=== PATIENT | female | born 1940 | race Caucasian/White ===

== ENCOUNTER → 2017-02-15 | Outpatient (CLI) | payer MEDICARE, BC ==
[~2017-02-15] MED LIST: ATOR10TA23; DARVOCET; METO-448; [UNRECOGNIZED DRUG - CODE]
--- NOTE | 2017-02-15 17:13 | RADRPT ---
PROCEDURE: XR Knees. CLINICAL INDICATION: Bilateral knee pain. TECHNIQUE: Total of six views. Frontal, oblique, and lateral views of both knees. COMPARISON: 05/04/2016. FINDINGS: There is no fracture or dislocation. There are bilateral joint effusions. There are degenerative changes with osteophytes arising from all 3 joint compartment margins bilater ally. There is bilateral lateral joint compartment narrowing, subarticular sclerosis, and deformity with left worse than right. There is associated valgus deformity. There is no lytic or blastic lesion. There is no radiopaque foreign body. IMPRESSION: 1. Severe degenerative changes of both knees with left worse than right. 2. Associated bilateral valgus deformity. 3. Bilateral joint effusions. RPTAT: QQ .Miguel Ángel Coyne MD, MD Date Time Electronically viewed and signed by .Miguel Ángel Coyne MD, MD on 02/15/2017 17:13 .R/
--- NOTE | 2017-02-16 06:06 | HKNOTE ---
DATE OF SERVICE: 02/15/2017 CHIEF COMPLAINT: Pain in both knees. HISTORY OF PRESENT ILLNESS: The patient is a 76-year-old female who complains of pain in both her knees, her lower back, and her legs. She has had all of these symptoms for 2-3 years. She is only seeing me here today for her knees. The patient has seen me on multiple previous occasions about her knees. I have been nursing her along with cortisone injections. At her last visit, she declined monitors because it was too expensive. She and I have spoken multiple times about knee replacement surgery, but she constantly declines. The last cortisone injection given to her knee did not last very long. The patient does a great deal of travel. Her biggest problem is squeezing into the narrow space between airline seats. One time she fell on the airplane as she was trying to get to the bathroom. She takes [id number] anti-inflammatory and pain medications. She states, "I know I need knee surgery, but I'm deathly afraid." Note that she had bilateral hip replacements performed by me about 10 years ago and she is very pleased with the results of the surgery. PRESENT COMPLAINT: The pain in her knees is aggravated by walking and weightbearing. She does get night pain and rest pain. Her ankles swell up on occasion. She states she does not know what it is due to, but maybe its "gravity swelling." The patient limps all the time. She does not have a shoe lift. She can tie her shoe laces, "but its not easy." Once she gets started walking on a level surface, she can keep going, but eventually she will stop because of pain. The patient does not use a walking aid. She can walk about 2 blocks without stopping. She limps most of the time. She does not have a shoe lift. She can clip her toenails, but has a great deal of difficulty with shoes and socks. PAST ORTHOPEDIC HISTORY: PREVIOUS ORTHOPEDIC OPERATIONS: Right hip replacement followed by a left hip replacement in [address] Eduin Roberson. PRIOR CORTISONE INTAKE: The patient states prior cortisone intake, "perhaps 4 injections over the past few years." ALCOHOL INTAKE: Very little, if at all. BLOOD TESTS FOR ARTHRITIS: "I do have arthritis." PRIOR INJURIES TO HIPS OR KNEES: None. WORK STATUS: The patient's work involves sitting. PAST MEDICAL HISTORY: Skin cancer, both legs. PAST SURGICAL HISTORY: Left hip replacement in 2006, right hip replacement in 2009, herniated lumbar disk surgery 1999?, history of appendectomy, breast biopsy. DRUG ALLERGIES: None. FAMILY HISTORY: Noncontributory. SYSTEMS REVIEW: Age-related failing vision. Ankles swell from time to time. HABITS: The patient smoked from [age]. She has had very little alcohol intake. drinks 3 glasses of wine a week. PHYSICAL EXAMINATION: GENERAL APPEARANCE: The patient is a fit-looking and delightful 76-year-old female (perhaps looks a little older than her stated age). VITAL SIGNS: Height 5 feet 6 inches. Weight 160 pounds. Blood pressure 170/73. Temperature 98.8. NEUROLOGIC: The patient walks without a walking aid. She has an antalgic gait. IMAGING: Imaging of the left knee obtained today at the [facility]. Her alignment is normal. There is marked narrowing of the medial compartment of the patellofemoral joint. Osteoporosis throughout. Imaging of the right knee obtained today at the [facility]. Her alignment is normal. There is marked narrowing of the medial compartment of the patellofemoral joint. Osteoporosis throughout. DIAGNOSES: 1. Severe degenerative osteoarthritis of both knees. 2. Status post bilateral hip replacements performed by Dr. Eduin Roberson. MANAGEMENT: Once again I spent considerable time with this lady discussing knee replacement surgery. The patient cried while we were talking. She states,"I know I have to have the surgery, but I'm afraid." I sat with this patient again discussing knee replacement and what is involved, explaining as much as I possibly could how benign the procedure is, although there are possible complications which can seem to be very scary. I latoya diagrams for her, showed her exactly what we do. She was shown copies of implants. She was, once again, given a copy of my booklet on knee operations/knee replacement surgery. She will call if and when she considers surgery at some time in the near future. Dictated By: Eduin Roberson MD /brandi/boubacar /Document#: [id number]
== END | disposition home or self-care (01) ==
LOC: HKI 14:25
DX: M17.0 Bilateral primary osteoarthritis of knee (principal); Z96.643 Presence of artificial hip joint, bilateral
CPT/HCPCS: 73562; G0463

== ENCOUNTER → 2017-04-20 | Outpatient (CLI) | payer MEDICARE, BC ==
--- NOTE | 2017-04-23 14:19 | HKNOTE ---
DATE OF SERVICE: 04/20/2017 CHIEF COMPLAINT: Bilateral knee pain. HISTORY OF PRESENT ILLNESS: Devorah is a 76-year-old lady who is here for evaluation of bilateral kne e pain. The pain is chronic and has been ongoing for a number of years. The pain increases with we ightbearing activities and is partially relieved by rest. She has been taking anti-inflammatory med ications and has tried injections in her knees, with some relief. Lately, the patient has experienc ed increased pain in her left knee that has reached a point where she is considering surgical treatm ent. There is no history of trauma, fever, or chills. She has been advised in the past that she ne eds a knee replacement. She has had hip replacements previously. PHYSICAL EXAMINATION GENERAL: Shows a pleasant female. She is awake, alert, and oriented. RESPIRATORY: Breathing comfortably. HEART: Has a regular rate and rhythm. EXTREMITIES: Examination of both knees shows varus deformities with medial joint line tenderness an d a limited range of motion from 10 to 105 degrees with crepitus. There is neurovascular deficit an d no instability of the knees. PAST HISTORY: Significant for bilateral hip replacement about 10 years ago. She also has a history of back pain and previous back surgery. MEDICATIONS: She takes cholesterol medication. REVIEW OF SYSTEMS: Negative for chest pain, shortness of breath, nausea and vomiting, or diarrhea. DIAGNOSTIC STUDIES: X-rays of both knees were reviewed and show advanced osteoarthritis, with compl ete loss of joint space and osteophyte formation. ASSESSMENT AND PLAN: A 76-year-old female with bilateral knee osteoarthritis. The pain has reached a point where she is interested in proceeding with a total knee replacement. She wants to do the l eft side first. The risks and benefits of surgical treatment were discussed. Implant materials and surgical techniques were discussed as well. The patient would like to proceed with left total knee replacement in the near future. Dictated By: FOZIA KOHLER/ALDO Conf#: [id number] DID#: [id number]
== END | disposition home or self-care (01) ==
LOC: HKI 14:32
PROVIDERS: ATTEND Orthopaedic Surgery
DX: M17.0 Bilateral primary osteoarthritis of knee (principal); E78.00 Pure hypercholesterolemia, unspecified; Z96.643 Presence of artificial hip joint, bilateral
CPT/HCPCS: G0463

== ENCOUNTER → 2017-04-27 | Outpatient (CLI) | payer MEDICARE, BC ==
--- NOTE | 2017-04-27 14:12 | PN ---
Date/Time of Note Date/Time of Note DATE: 04/27/17 TIME: 14:09 Outpatient Progress Note Chief Complaint First Orthovisc injection to the right knee HPI 76-year-old female presents today for first Orthovisc injection to the right knee. Has long history of bilateral knee osteoarthritis. Was seen last week with Dr. Stewart and is scheduled for left total knee arthroplasty. Patient has ongoing constant pain to the right knee as well and it was suggested that Orthovisc injection may provide relief and improve functionality while patient undergoes left total knee arthroplasty. She denies any falls or injury since she was last seen. Review of Systems Const: No Fever, no chills, no Fatigue, normal appetite, no diaphoresis. Resp: No SOB, no wheezing, no chest pain. CV: No chest pain, no palpitaions, no CARRERA. Physical Exam Blood pressure is 145/74, temperature is 97.9, pulse is 82, respiratory rate is 14, height is 5 foot 6 inches, weight is 160 pounds General Appearance: well-developed, well-nourished, in no acute distress. Right knee: No tenderness to palpation on examination today. Gait is normal but antalgic secondary to ongoing osteoarthritis. Patient is able to fully extend the knee and flex up to 120. Noted patellofemoral crepitus on range of motion testing. 5/5 strength on resistance. Normal sensory examination to light touch. Allergies Coded Allergies: No Known Drug Allergy (Verified Allergy, Unknown, 09/02/10) Assessment/Plan Problems: (1) Bilateral primary osteoarthritis of knee * Patient has provided consent to proceed with right knee Orthovisc injection, injection #1 of 3. Area was cleaned with Betadine swab. Using 25-gauge needle , 4 cc of 1% lidocaine injected to the knee for local anesthesia as well as using cold spray. Once local anesthesia was achieved, 22-gauge needle used to inject Orthovisc injection. No complications observed. Patient was observed for 3-5 minutes after injection prior to discharge. Patient tolerated procedure well. * Follow-up one week for 2/3 injection of Orthovisc. * Patient is also scheduled for left total knee arthroplasty in May 2017. Medications Home Meds Reported Medications Metoprolol Tartrate* (Lopressor*) 25 Mg Tab 09/02/10 Propoxyphene-N/Acetaminophen (Darvocet N-100) 1 Tab Tab 12/22/09 Est Conj/Est Conj-Medroxypr Ac (Prempro (0.3/1.5)) 28 Tab Tab 12/22/09 Atorvastatin (Lipitor) 10 Mg Tablet 12/22/09 JAMIE VANEGAS PA-C Apr 27, 2017 14:12
== END | disposition home or self-care (01) ==
LOC: HKI 13:46
PROVIDERS: ATTEND Orthopaedic Surgery
DX: M17.0 Bilateral primary osteoarthritis of knee (principal)

== ENCOUNTER → 2017-05-04 | Outpatient (CLI) | payer MEDICARE, BC ==
--- NOTE | 2017-05-04 14:37 | PN ---
Date/Time of Note Date/Time of Note DATE: 05/04/17 TIME: 14:35 Outpatient Progress Note Chief Complaint Right knee Orthovisc injection 2/ HPI 76-year-old female presents today for second Orthovisc injection to the right knee. Patient has had some relief in regards to knee pain. Denies any falls or injury since she was last seen. Patient is tentatively scheduled for left total knee arthroplasty in May 2017. Review of Systems Const: No Fever, no chills, no Fatigue, normal appetite, no diaphoresis. Resp: No SOB, no wheezing, no chest pain. CV: No chest pain, no palpitaions, no CARRERA. Physical Exam Blood pressure is 145/74, temperature is 97.9, pulse is 82, respiratory rate is 14, height is 5 foot 6 inches, weight is 160 pounds General Appearance: well-developed, well-nourished, in no acute distress. Right knee: No significant changes in physical examination since last week's examination. Allergies Coded Allergies: No Known Drug Allergy (Verified Allergy, Unknown, 09/02/10) Assessment/Plan Problems: (1) Bilateral primary osteoarthritis of knee * Patient has provided consent to proceed with right knee Orthovisc injection, injection #1 of 3. Area was cleaned with Betadine swab. Using 25-gauge needle , 4 cc of 1% lidocaine injected to the knee for local anesthesia as well as using cold spray. Once local anesthesia was achieved, 22-gauge needle used to inject Orthovisc injection. No complications observed. Patient was observed for 3-5 minutes after injection prior to discharge. Patient tolerated procedure well. * Follow-up one week for 3/3 injection of Orthovisc. Medications Home Meds Reported Medications Metoprolol Tartrate* (Lopressor*) 25 Mg Tab 09/02/10 Propoxyphene-N/Acetaminophen (Darvocet N-100) 1 Tab Tab 12/22/09 Est Conj/Est Conj-Medroxypr Ac (Prempro (0.3/1.5)) 28 Tab Tab 12/22/09 Atorvastatin (Lipitor) 10 Mg Tablet 12/22/09 JAMIE VANEGAS PA-C May 04, 2017 14:37
== END | disposition home or self-care (01) ==
LOC: HKI 14:07
PROVIDERS: ATTEND Orthopaedic Surgery
DX: M17.0 Bilateral primary osteoarthritis of knee (principal)

== ENCOUNTER → 2017-05-11 | Outpatient (CLI) | payer MEDICARE, BC ==
--- NOTE | 2017-05-11 14:12 | PN ---
Date/Time of Note Date/Time of Note DATE: 05/11/17 TIME: 14:09 Outpatient Progress Note Chief Complaint Third Orthovisc injection to the right knee HPI 76-year-old female presents today for third Orthovisc injection to the right knee. Patient states that her symptoms have improved with previous to Orthovisc injections. No complaints today. Review of Systems Const: No Fever, no chills, no Fatigue, normal appetite, no diaphoresis. Resp: No SOB, no wheezing, no chest pain. CV: No chest pain, no palpitaions, no CARRERA. Physical Exam Blood pressure is 145/74, temperature is 97.9, pulse is 82, respiratory rate is 14, height is 5 foot 6 inches, weight is 160 pounds General Appearance: well-developed, well-nourished, in no acute distress. Right knee: No changes in physical examination from previous exam. Allergies Coded Allergies: No Known Drug Allergy (Verified Allergy, Unknown, 09/02/10) Assessment/Plan Problems: (1) Bilateral primary osteoarthritis of knee * 4 cc of 1% lidocaine was injected into the knee using 25-gauge needle for local anesthesia. Prior to injection, area was cleaned with Betadine swab. After local anesthesia was achieved, Orthovisc injection was performed. No complications with injection. Patient was observed for 3-5 minutes after injection and then discharged. * Follow-up as needed in regards to right knee. Patient continues with ongoing preoperative preparation for upcoming left total knee arthroplasty in May 2017. Dr. Guido was present for examination and agrees with plan. Medications Home Meds Reported Medications Metoprolol Tartrate* (Lopressor*) 25 Mg Tab 09/02/10 Propoxyphene-N/Acetaminophen (Darvocet N-100) 1 Tab Tab 12/22/09 Est Conj/Est Conj-Medroxypr Ac (Prempro (0.3/1.5)) 28 Tab Tab 12/22/09 Atorvastatin (Lipitor) 10 Mg Tablet 12/22/09 JAMIE VANEGAS PA-C May 11, 2017 14:12
== END | disposition home or self-care (01) ==
LOC: HKI 14:09
PROVIDERS: ATTEND Orthopaedic Surgery
DX: M17.0 Bilateral primary osteoarthritis of knee (principal)
CPT/HCPCS: 20610; J7324

== ENCOUNTER → 2017-06-01 | Outpatient (CLI) | payer MEDICARE, BC ==
[~2017-06-01] MED LIST changes: +ATOR10TA65 PO
--- NOTE | 2017-06-23 06:32 | HKNOTE ---
DATE OF SERVICE: 06/01/2017 Preoperative visit for left total knee replacement. HISTORY OF PRESENT ILLNESS: Devorah is a 76-year-old female who is here for a preoperative visit rela parveen to osteoarthritis of her left knee. She is scheduled for left total knee replacement on 017. The patient has failed conservative treatment with medications, injections, physical therapy. The risks and benefits of total knee replacement were discussed with the patient including but not limited to bleeding, infection, scarring, stiffness, injury to nerves and vessels, chronic pain, fra cture, dislocation, implant failure and need for further surgery. The patient understands and wishe s to proceed. Dictated By: FOZIA KOHLER/ALDO Conf#: [id number] DID#: [id number]
== END | disposition home or self-care (01) ==
LOC: HKI 14:56
PROVIDERS: ATTEND Orthopaedic Surgery
DX: Z01.818 Encounter for other preprocedural examination (principal)
CPT/HCPCS: G0463

== ENCOUNTER 2017-06-06 06:36 | Inpatient (IN) | payer MEDICARE, BC ==
[~2017-06-06] VITALS: Ht 162.6 cm; Wt 71.0 kg
[2017-06-06] VITALS (24 sets, daily range): BP systolic 95–149; BP diastolic 51–76; PULSE 63–96; RESP 11–39; Ht 162.6 cm; Wt 71.0 kg
[~2017-06-06 06:36] MED LIST changes: +ACETAMINOPHEN 1000MG/100ML IV 100 ML IVPB ONE; -ATOR10TA65 PO; +CEFAZOLIN 2 GM/50 ML (PMX) 50 ML IVPB ONE; +CELECOXIB 200 MG CAP PO ONE; +DEXAMETHASONE 4 MG/ML 1 ML INJ IV ONE; +LACTATED RINGER'S 1,000 ML IV* SCH; +LANSOPRAZOLE 30 MG CAP PO ONE; +ONDANSETRON 4 MG INJ IV ONE
[2017-06-06] MEDS ORDERED: CEFAZOLIN 1 GM INJ ONE ×2 (07:00)
[2017-06-06] MEDS ORDERED: ATOR10TA65 PO (07:08)
--- NOTE | 2017-06-06 07:18 | HPN ---
Date/Time of Note Date/Time of Note DATE: 06/06/17 TIME: 07:18 Interval H&P Admission Note Pt. seen H&P reviewed: No system changes JAMIE VANEGAS PA-C Jun 06, 2017 07:18
[2017-06-06] MEDS ORDERED: FENTAnyl 50 MCG/ML VIAL ONE (10:25)
[2017-06-06] MEDS ORDERED: ROPIVACAINE 0.5 % 30 ML VIAL ONE (10:25)
[2017-06-06] MEDS ORDERED: DEXAMETHASONE 4 MG/ML 1 ML INJ ONE (10:25)
[2017-06-06] MEDS ORDERED: PROPOFOL 20 ML ONE (10:25)
[2017-06-06] MEDS ORDERED: METOCLOPRAMIDE 10 MG INJ ONE (10:25)
[2017-06-06] MEDS ORDERED: MIDAZOLAM 1 MG/ML 2 ML INJ ONE (10:25)
[2017-06-06] MEDS ORDERED: ROPIVACAINE 0.2% 60 ML, CLONIDINE 100 MCG, EPINEPHrine 0.3 MG, KETOROLAC 30 MG, SOD CHL... INJ SCH ×5 (10:30)
[2017-06-06] MEDS ORDERED: SOD CHLORIDE 0.9% IV ONE ×4 (10:30)
[2017-06-06] MEDS ORDERED: TRANEXAMIC ACID IV ONE ×4 (10:30)
[2017-06-06] MEDS ORDERED: POLYMYXIN B 500000 UNIT INJ ONE (10:36)
[2017-06-06] MEDS ORDERED: BACITRACIN 50000 UNITS INJ INJ ONE (10:44)
[2017-06-06] MEDS ORDERED: DIPHENHYDRAMINE 50 MG INJ IV PRN (11:30)
[2017-06-06] MEDS ORDERED: MEPERIDINE 25 MG INJ IV PRN (11:30)
[2017-06-06] MEDS ORDERED: ONDANSETRON 4 MG INJ IV PRN (11:30)
[2017-06-06] MEDS ORDERED: HYDROmorphONE (0.2 MG/ML) 10ML SYG IV PRN ×3 (11:30)
[2017-06-06] MEDS ORDERED: BACITRACIN 50000 UNITS INJ ONE (12:44)
--- NOTE | 2017-06-06 12:47 | SIPON ---
Date/Time of Note Date/Time of Note DATE: 06/06/17 TIME: 12:46 Operative Report Preoperative Diagnosis left knee DJD Postoperative Diagnosis same Operation/Procedure Performed left TKA Surgeon see signature line school psychologist assistant david Second assist: DAVID VANEGAS PA-C Anesthesia: spinal Estimated blood loss: 150 - 200 ml's Transfusion Required none Specimen bone Grafts/Implants DePuy 5 femur, 4 tibia, 6 poly, 35 patella Complications none FOZIA CAMERON Jun 06, 2017 12:47
--- NOTE | 2017-06-06 12:52 | RADRPT ---
PROCEDURE: Left knee study CLINICAL INDICATION: Left knee prosthesis placed TECHNIQUE: AP view of the left knee was obtained COMPARISON: Bilateral knee study 02/15/2017 FINDINGS: There is external artifact precluding optimal evaluation. There is a left knee prosthesis in place w ithout evidence of dislocation or loosening. There is no focal bony blastic or lytic lesions. Mild s oft tissue air consistent with postoperative change. IMPRESSION: 1. Suboptimal study due to external artifact. 2. Left knee prosthesis in place without evidence of dislocation or loosening. 3. Postoperative changes. RPTAT:AAJJ Physician Aleena Date Time Electronically viewed and signed by Physician Aleena on 06/06/2017 12:51 BM/
--- NOTE | 2017-06-06 13:11 | PDOCDIS ---
Discharge Instructions DIAGNOSIS Discharge Diagnosis Status post left total knee arthroplasty CONDITION Patient Condition: Good HOME CARE INSTRUCTIONS: Diet Instructions: Regular ACTIVITY: Activity Restrictions: Slowly Increase Activity Rest between Activity Avoid heavy lifting No Sexual Activity Do not Drive Do not operate Machinery Do not operate Power Tool Avoid Heavy Housework Keep Limb Elevated (May apply 2-3 pillows under the foot/ankle while at rest. Cold therapy over surgical dressing is okay.) Weight Bearing (Weight-bear as tolerated with front wheeled walker.) FOLLOW UP/APPOINTMENTS Follow-up Plan Follow-up at postoperative appointment provided to you at your preoperative visit. JAMIE VANEGAS PA-C Jun 06, 2017 13:11
[2017-06-06] MEDS ORDERED: DIPHENHYDRAMINE 50 MG INJ IM PRN (13:30)
[2017-06-06] MEDS ORDERED: DOCUSATE SODIUM 100 MG CAP PO ONE (13:30)
[2017-06-06] MEDS ORDERED: BISACODYL 10 MG SUPP PR PRN (13:30)
[2017-06-06] MEDS ORDERED: SENNA/DOCUSATE NA (8.6MG/50MG) TAB PO PRN (13:30)
[2017-06-06] MEDS ORDERED: BETHANECHOL 25 MG TAB PO PRN (13:30)
[2017-06-06] MEDS ORDERED: MAGNESIUM HYDROXIDE 30ML CUP PO PRN (13:30)
[2017-06-06] MEDS ORDERED: ASPIRIN (EC) 325 MG TAB PO ONE (13:30)
[2017-06-06] MEDS ORDERED: KETOROLAC 15 MG INJ IV PRN (13:30)
[2017-06-06] MEDS ORDERED: NA PHOSPHATE/BIPHOS 133 ML ENEMA PR PRN (13:30)
[2017-06-06] MEDS ORDERED: oxyCODONE 5 MG TAB PO PRN ×2 (13:30)
[2017-06-06] MEDS ORDERED: NALOXONE (0.4 MG/ML) INJ IV PRN (13:30)
[2017-06-06] MEDS ORDERED: ZOLPIDEM 5 MG TAB PO PRN (13:30)
[2017-06-06] MEDS: CEFAZOLIN 1 GM/50 ML (PMX) 50 ML IVPB SCH ×2 (13:39→21:00)
[2017-06-06] MEDS: ONDANSETRON 4 MG INJ IV SCH ×2 (13:41→19:30)
--- NOTE | 2017-06-06 14:15 | PN ---
Date/Time of Note Date/Time of Note DATE: 06/06/17 TIME: 14:10 Assessment/Plan VTE Prophylaxis VTE Prophylaxis Intervention: SCD's Lines/Catheters IV Catheter Type (from Nrsg): Saline Lock Subjective 24 Hr Interval Summary Free Text/Dictation 76 yr old woman pt of jennifer stanford see preop h and p, hx , dyslipidemia and arthritis. prior hip replacements bilat, appy and laminectomy. now post left tkr, with hx progressive dysconfort and limping allergies none meds lipitor 5mg sleepy but alert and fluent vs ok lungs clear, hr regular, left knee wrapped, moves all four Exam/Review of Systems Vital Signs Vitals Vital Signs Date Time Temp Pulse Resp B/P Pulse Ox O2 Delivery O2 Flow Rate FiO2 06/06/17 08:24 98.3 85 19 149/76 100 Room Air Medications Medications Current Medications Sodium Chloride (NS) 1,000 ml @ 80 mls/hr [id number] IV ; Start 06/06/17 at 13:12 Oxycodone HCl (Roxicodone) 20 mg Q3H PRN PO PAIN LEVEL 8-10; Start 06/06/17 at 13:30 Oxycodone HCl (Roxicodone) 10 mg Q3H PRN PO PAIN LEVEL 4-7; Start 06/06/17 at 13:30 Oxycodone HCl (Roxicodone) 5 mg Q3H PRN PO PAIN LEVEL 1-3; Start 06/06/17 at 13:30 Zolpidem Tartrate (Ambien) 5 mg HS PRN PO INSOMNIA; Start 06/06/17 at 13:30 Ondansetron HCl 4 mg 4 mg Q6H IV Last administered on 06/06/17t 13:41; Admin Dose 4 MG; Start 06/06/17 at 13:30; Stop 06/07/17 at 07:31 Cefazolin Sodium (Ancef 1 Gm/50 ml (Pmx)) 50 ml @ 100 mls/hr Q8H IVPB Last administered on 06/06/17t 13:39; Admin Dose 100 MLS/HR; Start 06/06/17 at 13: 30; Stop 06/07/17 at 05:59 Aspirin (Ecotrin) 325 mg DAILY PO ; Start 06/07/17 at 09:00 Celecoxib (Celebrex) 100 mg BID PO ; Start 06/07/17 at 09:00 Pantoprazole (Protonix Tab) 40 mg DAILY@06 PO ; Start 06/08/17 at 06:00 Docusate Sodium/ Ferrous Fumarate (Arturo-Sequels) 1 tab BID PO ; Start at 09:00 Docusate Sodium (Colace) 200 mg BID PO ; Start 06/07/17 at 09:00; Stop at 08:59 Simethicone (Mylicon) 80 mg TID PRN PO DISTENSION/GAS/BLOATING; Start at 13:30 Senna/Docusate Sodium (Senokot-S) 2 tab BID PRN PO CONSTIPATION; Start at 13:30 Magnesium Hydroxide (Milk Of Mag) 30 ml HS PRN PO CONSTIPATION; Start at 13:30 Bisacodyl (Dulcolax Supp) 10 mg DAILY PRN [place] CONSTIPATION; Start 06/06/17 at 13:30 Sodium Biphosphate/ Sodium Phosphate (Fleet Enema) 133 ml DAILY PRN [place] CONSTIPATION; Start 06/06/17 at 13:30 Diphenhydramine HCl (Benadryl) 25 mg Q4H PRN IM ITCHING OR RASH; Start at 13:30 Ketorolac Tromethamine (Toradol) 15 mg Q6 PRN IV PAIN; Start 06/06/17 at 13:30 ; Stop 06/10/17 at 13:29 Naloxone HCl (Narcan) 0.2 mg Q2M PRN IV DECREASED REPIRATORY RATE; Start at 13:30 CANDI MENDOZA MD Jun 06, 2017 14:15
[2017-06-06] MEDS: SOD CHLORIDE 0.9% 1,000 ML IV SCH (15:30)
--- NOTE | 2017-06-06 16:46 | OPR ---
Date/Time of Note Date/Time of Note DATE: 06/06/17 TIME: 16:42 Operative Report Procedure Date: Jun 06, 2017 Preoperative Diagnosis Left knee osteoarthritis Postoperative Diagnosis Same Operation/Procedure Performed Total knee replacement Surgeon see signature line Weight Checker Aristeo Second Weight Checker: JAMIE VANEGAS PA-C Anesthesia Type: spinal Estimated Blood Loss: 150 - 200 ml's Transfusion none Specimen Bone Grafts/Implants Size 5 femur, size 4 tibia, 6 mm polyethylene and 35 mm patella Tubes/Drains None Complications none Pt Condition Post Procedure: stable Disposition: PACU Indications Patient is a 76-year-old female with advanced osteoarthritis of her left knee response to conservative treatment Procedure Description He was placed supine on the operating room table. The left knee was examined and found to have a valgus deformity of 12-15. And flexion deformity of 10-15 . The left knee was prepped and draped in the usual manner. Preoperative antibiotics were administered. An anterior approach to the left knee was made. A mid vastus approach was made and the patella was displaced laterally without everting it. Hemostasis was achieved with electrocautery and aqua Mantis. The femoral cut was made using intramedullary alignment. The distal femoral cut was made in 5 of valgus. The femur was measured to be a size 5 from the [place] knee system. 5 cutting block was placed in slight external rotation. Anterior posterior and chamfer cuts were made. The notch was cut in the distal femur to accommodate the posterior stabilized femoral component. The PCL was sacrificed. Remnants of the menisci were removed. The tibia was cut using external alignment. The patella was cut using a freehand technique. Trials were inserted including a 5 femur, 4 tibia, 6 mm polyethylene and 35 mm patella. The knee was carried through a range of motion and was found to be stable from 0-120 with good balance and tracking. Alignment was satisfactory. X-rays were obtained to confirm placement of the implants. Once satisfactory alignment was confirmed, the trials were removed. The left knee was thoroughly irrigated and dried. Implants were cemented in place including a 5 narrow femur , 4 tibia, 6 mm polyethylene and 35 mm patella. Excess cement was removed. The knee was irrigated and injected with Marcaine and Toradol. The knee was closed in layers using #1 Vicryl for arthrotomy and fascia, 2-0 Vicryl for subcutaneous tissue and 3-0 Monocryl for the skin. Patient was transferred to the recovery room in stable condition. FOZIA CAMERON Jun 06, 2017 16:46
[2017-06-06] MEDS: oxyCODONE 5 MG TAB PO PRN (21:01)
[2017-06-07] MEDS: ONDANSETRON 4 MG INJ IV SCH ×2 (01:30→07:30)
[2017-06-07] MEDS: SOD CHLORIDE 0.9% 1,000 ML IV SCH ×2 (01:42→14:12)
[2017-06-07] MEDS: CEFAZOLIN 1 GM/50 ML (PMX) 50 ML IVPB SCH (05:59)
[2017-06-07] MEDS: oxyCODONE 5 MG TAB PO PRN ×4 (06:00→21:08)
[2017-06-07 06:16] LABS: BASOPHILS % 0.3 % (0.0-2.0); EOSINOPHILS # 0.1 10^3/ul (0.0-0.5); EOSINOPHILS % 0.5 % (0.0-7.0); HEMATOCRIT 33.5 % (37.0-47.0); HEMOGLOBIN 10.7 g/dl (12.0-16.0); LYMPHOCYTES # 2.3 10^3/ul (0.8-2.9); LYMPHOCYTES % 19.9 % (15.0-51.0); MEAN CORPUSCULAR HEMOGLOBIN 27.3 pg (29.0-33.0); MEAN CORPUSCULAR HGB CONC 31.9 g/dl (32.0-37.0); MEAN CORPUSCULAR VOLUME 85.5 fl (82.0-101.0); MEAN PLATELET VOLUME 9.1 fl (7.4-10.4); MONOCYTE # 0.8 10^3/ul (0.3-0.9); MONOCYTES % 6.7 % (0.0-11.0); NEUTROPHIL # 8.3 10^3/ul (1.6-7.5); NEUTROPHILS % 72.3 % (39.0-77.0); PLATELET COUNT 310 10^3/UL (140-415); RED BLOOD COUNT 3.92 10^6/ul (4.20-5.40); RED CELL DISTRIBUTION WIDTH 13.9 % (11.5-14.5); WHITE BLOOD COUNT 11.4 10^3/ul (4.8-10.8)
[2017-06-07 06:38] LABS: CALCIUM 8.7 mg/dl (8.4-10.2); CREATININE 0.81 mg/dl (0.44-1.00); POTASSIUM 4.9 mmol/L (3.5-5.1)
[2017-06-07 07:50] VITALS: BP 116/64; RESP 16
[2017-06-07] MEDS: DOCUSATE SODIUM 100 MG CAP PO SCH ×2 (09:02→21:08)
[2017-06-07] MEDS: CELECOXIB 100 MG CAP PO SCH ×2 (09:02→21:08)
[2017-06-07] MEDS: FERROUS FUMARATE (SR) TAB PO SCH ×2 (09:02→21:08)
[2017-06-07] MEDS: ASPIRIN (EC) 325 MG TAB PO SCH (09:02)
--- NOTE | 2017-06-07 11:14 | PN ---
Date/Time of Note Date/Time of Note DATE: 06/07/17 TIME: 11:12 Assessment/Plan VTE Prophylaxis VTE Prophylaxis Intervention: ambulation, anti-embolic stocking, SCD's, other Lines/Catheters IV Catheter Type (from Nrs): Saline Lock Subjective 24 Hr Interval Summary Free Text/Dictation Patient is doing well status post left total knee replacement. She is ambulating with physical therapy. The dressing is intact. There is no neurovascular deficit. Motion of the left knee is 10-80. Would like to go home tomorrow. Home health care and physical therapy will be arranged. Exam/Review of Systems Vital Signs Vitals Vital Signs Date Time Temp Pulse Resp B/P Pulse Ox O2 Delivery O2 Flow Rate FiO2 06/07/17 07:50 98.3 77 16 116/64 100 06/06/17 17:15 Room Air 06/06/17 13:17 8.0 Intake and Output 06/06/17 06/06/17 06/07/17 14:59 22:59 06:59 Intake Total 1000 ml 370 ml 1450 ml Output Total 200 ml Balance 800 ml 370 ml 1450 ml Results Result Diagram: 06/07/17 0518 06/07/17 0518 Results 24 hrs Laboratory Tests Test 06/07/17 05:18 White Blood Count 11.4 H Red Blood Count 3.92 L Hemoglobin 10.7 L Hematocrit 33.5 L Mean Corpuscular Volume 85.5 Mean Corpuscular Hemoglobin 27.3 L Mean Corpuscular Hemoglobin Concent 31.9 L Red Cell Distribution Width 13.9 Platelet Count 310 Mean Platelet Volume 9.1 Neutrophils % 72.3 Lymphocytes % 19.9 Monocytes % 6.7 Eosinophils % 0.5 Basophils % 0.3 Nucleated Red Blood Cells % 0.0 Neutrophils # 8.3 H Lymphocytes # 2.3 Monocytes # 0.8 Eosinophils # 0.1 Basophils # 0.0 Nucleated Red Blood Cells # 0.0 Sodium Level 142 Potassium Level 4.9 Chloride Level 109 Carbon Dioxide Level 29 Anion Gap 9 Blood Urea Nitrogen 14 Creatinine 0.81 Glucose Level 94 Calcium Level 8.7 Medications Medications Current Medications Sodium Chloride (NS) 1,000 ml @ 80 mls/hr [id number] IV Last administered on t 15:30; Admin Dose 80 MLS/HR; Start 06/06/17 at 13:12 Oxycodone HCl (Roxicodone) 20 mg Q3H PRN PO PAIN LEVEL 8-10; Start 06/06/17 at 13:30 Oxycodone HCl (Roxicodone) 10 mg Q3H PRN PO PAIN LEVEL 4-7 Last administered on 06/07/17 09:02; Admin Dose 10 MG; Start 06/06/17 at 13:30 Oxycodone HCl (Roxicodone) 5 mg Q3H PRN PO PAIN LEVEL 1-3; Start 06/06/17 at 13:30 Zolpidem Tartrate (Ambien) 5 mg HS PRN PO INSOMNIA; Start 06/06/17 at 13:30 Aspirin (Ecotrin) 325 mg DAILY PO Last administered on 06/07/17 09:02; Admin Dose 325 MG; Start 06/07/17 at 09:00 Celecoxib (Celebrex) 100 mg BID PO Last administered on 06/07/17 09:02; Admin Dose 100 MG; Start 06/07/17 at 09:00 Pantoprazole (Protonix Tab) 40 mg DAILY@06 PO ; Start 06/08/17 at 06:00 Docusate Sodium/ Ferrous Fumarate (Arturo-Sequels) 1 tab BID PO Last administered on 06/07/17 09:02; Admin Dose 1 TAB; Start 06/07/17 at 09:00 Docusate Sodium (Colace) 200 mg BID PO Last administered on 06/07/17 09:02; Admin Dose 200 MG; Start 06/07/17 at 09:00; Stop 06/10/17 at 08:59 Simethicone (Mylicon) 80 mg TID PRN PO DISTENSION/GAS/BLOATING; Start at 13:30 Senna/Docusate Sodium (Senokot-S) 2 tab BID PRN PO CONSTIPATION; Start at 13:30 Magnesium Hydroxide (Milk Of Mag) 30 ml HS PRN PO CONSTIPATION; Start at 13:30 Bisacodyl (Dulcolax Supp) 10 mg DAILY PRN [place] CONSTIPATION; Start 06/06/17 at 13:30 Sodium Biphosphate/ Sodium Phosphate (Fleet Enema) 133 ml DAILY PRN ID CONSTIPATION; Start 06/06/17 at 13:30 Diphenhydramine HCl (Benadryl) 25 mg Q4H PRN IM ITCHING OR RASH; Start at 13:30 Ketorolac Tromethamine (Toradol) 15 mg Q6 PRN IV PAIN; Start 06/06/17 at 13:30 ; Stop 06/10/17 at 13:29 Naloxone HCl (Narcan) 0.2 mg Q2M PRN IV DECREASED REPIRATORY RATE; Start at 13:30 FOZIA CAMERON Jun 07, 2017 11:14
--- NOTE | 2017-06-07 11:35 | PN ---
Date/Time of Note Date/Time of Note DATE: 06/07/17 TIME: 11:33 Assessment/Plan VTE Prophylaxis VTE Prophylaxis Intervention: SCD's Lines/Catheters IV Catheter Type (from Nrsg): Saline Lock Subjective 24 Hr Interval Summary Free Text/Dictation first post op day tkr, has been up in room with p.t. and to br vs ok, lungs clear, hr ok seen with spouse, questions answered medical status is good prob dc tomorrow per ortho Exam/Review of Systems Vital Signs Vitals Vital Signs Date Time Temp Pulse Resp B/P Pulse Ox O2 Delivery O2 Flow Rate FiO2 06/07/17 07:50 98.3 77 16 116/64 100 06/06/17 17:15 Room Air 06/06/17 13:17 8.0 Intake and Output 06/06/17 06/06/17 06/07/17 15:00 23:00 07:00 Intake Total 1000 ml 370 ml 1450 ml Output Total 200 ml Balance 800 ml 370 ml 1450 ml Results Result Diagram: 06/07/17 0518 06/07/17 0518 Results 24 hrs Laboratory Tests Test 06/07/17 05:18 White Blood Count 11.4 H Red Blood Count 3.92 L Hemoglobin 10.7 L Hematocrit 33.5 L Mean Corpuscular Volume 85.5 Mean Corpuscular Hemoglobin 27.3 L Mean Corpuscular Hemoglobin Concent 31.9 L Red Cell Distribution Width 13.9 Platelet Count 310 Mean Platelet Volume 9.1 Neutrophils % 72.3 Lymphocytes % 19.9 Monocytes % 6.7 Eosinophils % 0.5 Basophils % 0.3 Nucleated Red Blood Cells % 0.0 Neutrophils # 8.3 H Lymphocytes # 2.3 Monocytes # 0.8 Eosinophils # 0.1 Basophils # 0.0 Nucleated Red Blood Cells # 0.0 Sodium Level 142 Potassium Level 4.9 Chloride Level 109 Carbon Dioxide Level 29 Anion Gap 9 Blood Urea Nitrogen 14 Creatinine 0.81 Glucose Level 94 Calcium Level 8.7 Medications Medications Current Medications Sodium Chloride (NS) 1,000 ml @ 80 mls/hr [id number] IV Last administered on t 15:30; Admin Dose 80 MLS/HR; Start 06/06/17 at 13:12 Oxycodone HCl (Roxicodone) 20 mg Q3H PRN PO PAIN LEVEL 8-10; Start 06/06/17 at 13:30 Oxycodone HCl (Roxicodone) 10 mg Q3H PRN PO PAIN LEVEL 4-7 Last administered on 06/07/17 09:02; Admin Dose 10 MG; Start 06/06/17 at 13:30 Oxycodone HCl (Roxicodone) 5 mg Q3H PRN PO PAIN LEVEL 1-3; Start 06/06/17 at 13:30 Zolpidem Tartrate (Ambien) 5 mg HS PRN PO INSOMNIA; Start 06/06/17 at 13:30 Aspirin (Ecotrin) 325 mg DAILY PO Last administered on 06/07/17 09:02; Admin Dose 325 MG; Start 06/07/17 at 09:00 Celecoxib (Celebrex) 100 mg BID PO Last administered on 06/07/17 09:02; Admin Dose 100 MG; Start 06/07/17 at 09:00 Pantoprazole (Protonix Tab) 40 mg DAILY@06 PO ; Start 06/08/17 at 06:00 Docusate Sodium/ Ferrous Fumarate (Arturo-Sequels) 1 tab BID PO Last administered on 06/07/17 09:02; Admin Dose 1 TAB; Start 06/07/17 at 09:00 Docusate Sodium (Colace) 200 mg BID PO Last administered on 06/07/17 09:02; Admin Dose 200 MG; Start 06/07/17 at 09:00; Stop 06/10/17 at 08:59 Simethicone (Mylicon) 80 mg TID PRN PO DISTENSION/GAS/BLOATING; Start at 13:30 Senna/Docusate Sodium (Senokot-S) 2 tab BID PRN PO CONSTIPATION; Start at 13:30 Magnesium Hydroxide (Milk Of Mag) 30 ml HS PRN PO CONSTIPATION; Start at 13:30 Bisacodyl (Dulcolax Supp) 10 mg DAILY PRN [place] CONSTIPATION; Start 06/06/17 at 13:30 Sodium Biphosphate/ Sodium Phosphate (Fleet Enema) 133 ml DAILY PRN [place] CONSTIPATION; Start 06/06/17 at 13:30 Diphenhydramine HCl (Benadryl) 25 mg Q4H PRN IM ITCHING OR RASH; Start at 13:30 Ketorolac Tromethamine (Toradol) 15 mg Q6 PRN IV PAIN; Start 06/06/17 at 13:30 ; Stop 06/10/17 at 13:29 Naloxone HCl (Narcan) 0.2 mg Q2M PRN IV DECREASED REPIRATORY RATE; Start at 13:30 CANDI MENDOZA MD Jun 07, 2017 11:35
[2017-06-07 14:48] VITALS: BP 104/55; RESP 15
[2017-06-07 19:20] VITALS: BP 115/57; RESP 18
[2017-06-08 02:00] VITALS: BP 119/57; RESP 18
[2017-06-08] MEDS: SOD CHLORIDE 0.9% 1,000 ML IV SCH ×2 (02:42→15:12)
[2017-06-08] MEDS: oxyCODONE 5 MG TAB PO PRN (05:43)
[2017-06-08 05:56] LABS: BASOPHILS % 0.4 % (0.0-2.0); EOSINOPHILS # 0.1 10^3/ul (0.0-0.5); EOSINOPHILS % 0.9 % (0.0-7.0); HEMATOCRIT 33.4 % (37.0-47.0); HEMOGLOBIN 10.6 g/dl (12.0-16.0); LYMPHOCYTES # 1.4 10^3/ul (0.8-2.9); MEAN CORPUSCULAR HGB CONC 31.7 g/dl (32.0-37.0); MEAN CORPUSCULAR VOLUME 85.2 fl (82.0-101.0); MEAN PLATELET VOLUME 9.1 fl (7.4-10.4); MONOCYTE # 0.7 10^3/ul (0.3-0.9); MONOCYTES % 8.2 % (0.0-11.0); NEUTROPHILS % 73.3 % (39.0-77.0); PLATELET COUNT 317 10^3/UL (140-415); RED BLOOD COUNT 3.92 10^6/ul (4.20-5.40); RED CELL DISTRIBUTION WIDTH 13.9 % (11.5-14.5); WHITE BLOOD COUNT 8.2 10^3/ul (4.8-10.8)
[2017-06-08] MEDS ORDERED: PANTOPRAZOLE (EC) 40 MG TAB PO SCH (06:00)
[2017-06-08 06:39] LABS: CALCIUM 8.4 mg/dl (8.4-10.2); CREATININE 0.67 mg/dl (0.44-1.00); POTASSIUM 3.8 mmol/L (3.5-5.1)
[2017-06-08 07:38] VITALS: BP 131/62; RESP 18
--- NOTE | 2017-06-08 09:14 | PN ---
Date/Time of Note Date/Time of Note DATE: 06/08/17 TIME: 09:12 Assessment/Plan VTE Prophylaxis VTE Prophylaxis Intervention: ambulation, SCD's, other (Aspirin 325 mg) Lines/Catheters IV Catheter Type (from Nrsg): Peripheral IV Assessment/Plan Assessment/Plan -Pain Meds as needed -ASA for DVT Prophylaxis x 4 weeks outpatient discussed. -Continue monitoring as outpatient on discharge -Follow-up at scheduled postop outpatient appointment or sooner if there is any issue. -Patient Stable -Discharge to Home with home health Subjective 24 Hr Interval Summary 76-year-old female postop day 2 status post left total knee arthroplasty. Denies any calf pain. Denies any chest pain or tightness. Has been up and walking with physical therapy. Denies any acute overnight events. Does continue with aches to the knee status post surgery. Pain Control: mild Exam/Review of Systems Vital Signs Vitals Vital Signs Date Time Temp Pulse Resp B/P Pulse Ox O2 Delivery O2 Flow Rate FiO2 06/08/17 07:38 98.6 78 18 131/62 95 06/06/17 17:15 Room Air 06/06/17 13:17 8.0 Intake and Output 06/07/17 06/07/17 06/08/17 15:00 23:00 07:00 Intake Total 800 ml 650 ml Output Total 500 ml 1110 ml Balance 300 ml -460 ml Exam Free Text/Dictation -No complications with dressing intact. -5/5 Tibialis Anterior, EHL Gastrocnemius/Soleus and Peroneals -Normal Sensation -Palpable DP/PT, Capillary Refill <2 secs -No Distal Edema -Negative Osmin Sign/No calf pain -Toes Freely Movable Constitutional: alert, oriented, well developed Results Result Diagram: 06/08/17 0506 06/08/17 0506 JAMIE VANEGAS PA-C Jun 08, 2017 09:14
[2017-06-08] MEDS: ASPIRIN (EC) 325 MG TAB PO SCH (09:19)
[2017-06-08] MEDS: DOCUSATE SODIUM 100 MG CAP PO SCH (09:19)
[2017-06-08] MEDS: CELECOXIB 100 MG CAP PO SCH (09:19)
[2017-06-08] MEDS: FERROUS FUMARATE (SR) TAB PO SCH (09:19)
[2017-06-08] MEDS ORDERED: ACETAMINOPHEN 325 MG TAB PO PRN (09:30)
[2017-06-08] MEDS ORDERED: ONDANSETRON 4 MG INJ IV PRN (10:00)
--- NOTE | 2017-06-08 10:26 | PN ---
Date/Time of Note Date/Time of Note DATE: 06/08/17 TIME: 10:21 Assessment/Plan VTE Prophylaxis VTE Prophylaxis Intervention: ambulation, SCD's Lines/Catheters IV Catheter Type (from Nrsg): Peripheral IV Urinary Cath still in place: No Assessment/Plan Chief Complaint/Hosp Course nausea probably 2nd to pain medications otherwise stable will rx zofran re nausea otherwise stable a this poin management per ortho Problems: Assessment/Plan scheduled for discharge today mper ortho Subjective 24 Hr Interval Summary Eyes: no complaints ENT: no complaints Respiratory: no complaints Cardiovascular: no complaints Gastrointestinal: nausea Genitourinary: no complaints Musculoskeletal: bone/joint pain Skin: no complaints Neurologic: no complaints Exam/Review of Systems Vital Signs Vitals Vital Signs Date Time Temp Pulse Resp B/P Pulse Ox O2 Delivery O2 Flow Rate FiO2 06/08/17 07:38 98.6 78 18 131/62 95 06/06/17 17:15 Room Air 06/06/17 13:17 8.0 Intake and Output 06/07/17 06/07/17 06/08/17 15:00 23:00 07:00 Intake Total 800 ml 650 ml Output Total 500 ml 1110 ml Balance 300 ml -460 ml Exam Constitutional: alert Psych: no complaints Head: normocephalic Eyes: nl conjunctiva ENMT: nl external ears & nose Neck: supple Respiratory: clear to auscultation Cardiovascular: regular rate and rhythm Gastrointestinal: soft Extremities: other (post total knee replacement left knee) Results Result Diagram: 06/08/17 0506 06/08/17 0506 Results 24 hrs Laboratory Tests Test 06/08/17 05:06 White Blood Count 8.2 # Red Blood Count 3.92 L Hemoglobin 10.6 L Hematocrit 33.4 L Mean Corpuscular Volume 85.2 Mean Corpuscular Hemoglobin 27.0 L Mean Corpuscular Hemoglobin Concent 31.7 L Red Cell Distribution Width 13.9 Platelet Count 317 Mean Platelet Volume 9.1 Neutrophils % 73.3 Lymphocytes % 17.0 Monocytes % 8.2 Eosinophils % 0.9 Basophils % 0.4 Nucleated Red Blood Cells % 0.0 Neutrophils # 6.0 Lymphocytes # 1.4 Monocytes # 0.7 Eosinophils # 0.1 Basophils # 0.0 Nucleated Red Blood Cells # 0.0 Sodium Level 140 Potassium Level 3.8 Chloride Level 105 Carbon Dioxide Level 28 Anion Gap 11 Blood Urea Nitrogen 13 Creatinine 0.67 Glucose Level 109 Calcium Level 8.4 Medications Medications Current Medications Sodium Chloride (NS) 1,000 ml @ 80 mls/hr [id number] IV Last administered on 15:30; Admin Dose 80 MLS/HR; Start 06/06/17 at 13:12 Oxycodone HCl (Roxicodone) 20 mg Q3H PRN PO PAIN LEVEL 8-10; Start 06/06/17 at 13:30 Oxycodone HCl (Roxicodone) 10 mg Q3H PRN PO PAIN LEVEL 4-7 Last administered on 06/08/17 05:43; Admin Dose 10 MG; Start 06/06/17 at 13:30 Oxycodone HCl (Roxicodone) 5 mg Q3H PRN PO PAIN LEVEL 1-3; Start 06/06/17 at 13:30 Zolpidem Tartrate (Ambien) 5 mg HS PRN PO INSOMNIA; Start 06/06/17 at 13:30 Aspirin (Ecotrin) 325 mg DAILY PO Last administered on 06/08/17 09:19; Admin Dose 325 MG; Start 06/07/17 at 09:00 Celecoxib (Celebrex) 100 mg BID PO Last administered on 06/08/17 09:19; Admin Dose 100 MG; Start 06/07/17 at 09:00 Pantoprazole (Protonix Tab) 40 mg DAILY@06 PO Last administered on 06/08/17 05:44; Admin Dose 40 MG; Start 06/08/17 at 06:00 Docusate Sodium/ Ferrous Fumarate (Arturo-Sequels) 1 tab BID PO Last administered on 06/08/17 09:19; Admin Dose 1 TAB; Start 06/07/17 at 09:00 Docusate Sodium (Colace) 200 mg BID PO Last administered on 06/08/17 09:19; Admin Dose 200 MG; Start 06/07/17 at 09:00; Stop 06/10/17 at 08:59 Simethicone (Mylicon) 80 mg TID PRN PO DISTENSION/GAS/BLOATING; Start at 13:30 Senna/Docusate Sodium (Senokot-S) 2 tab BID PRN PO CONSTIPATION; Start at 13:30 Magnesium Hydroxide (Milk Of Mag) 30 ml HS PRN PO CONSTIPATION; Start at 13:30 Bisacodyl (Dulcolax Supp) [address] CONSTIPATION; Start 06/06/17 at 13:30 Sodium Biphosphate/ Sodium Phosphate (Fleet Enema) [address] CONSTIPATION; Start 06/06/17 at 13:30 Diphenhydramine HCl (Benadryl) 25 mg Q4H PRN IM ITCHING OR RASH; Start at 13:30 Ketorolac Tromethamine (Toradol) 15 mg Q6 PRN IV PAIN; Start 06/06/17 at 13:30 ; Stop 06/10/17 at 13:29 Naloxone HCl (Narcan) 0.2 mg Q2M PRN IV DECREASED REPIRATORY RATE; Start at 13:30 Acetaminophen (Tylenol Tab) 650 mg Q6H PRN PO PAIN AND OR ELEVATED TEMP Last administered on 06/08/17t 09:50; Admin Dose 650 MG; Start 06/08/17 at 09:30 Ondansetron HCl (Zofran Inj) 4 mg Q6H PRN IV NAUSEA AND/OR VOMITING; Start at 10:00 MIGUELINA BAE MD Jun 08, 2017 10:26
[2017-06-08] MEDS ORDERED: ASA/ACETAMINOPHEN/CAFF TAB PO ONE (13:30)
[2017-06-08 14:22] VITALS: BP 155/71; RESP 18
--- NOTE | 2017-06-11 08:08 | DS ---
Date/Time of Note Date/Time of Note DATE: 06/11/17 TIME: 08:03 Discharge Summary Admission/Discharge Info Admit Date/Time Jun 06, 2017 at 06:36 Discharge Date/Time Jun 08, 2017 at 18:40 Discharge Diagnosis Status post left total knee arthroplasty Patient Condition: Stable Hospital Course On the day of admission, the patient underwent left total knee arthroplasty Intraoperative complications: None Postoperative complications: None The patient was given prophylactic antibiotics and anticoagulants. On the day of surgery and first postoperative day patient was started on gait training and was taught usual restrictions following knee replacement On postoperative day 1 dressing was clean dry and intact. No complications were observed. On the day of discharge, the wound was clean and healing well; there was no sign of infection. Wound care instructions were discussed with the patient. Discharge Temperature: 98 Discharge White Blood Cell Count: 8.2 Discharge Hemoglobin: 10.6 The patient was discharged home with home health. Arrangements were made for visiting nurses and home health/physical therapy. The patient will be seen in office at scheduled postoperative evaluation date given on their preoperative exam. Should patient complain of any problems prior to scheduled postoperative evaluation date, they may call into outpatient clinic to determine if they need to be scheduled at sooner appointment to be seen immediately if needed. Discharge medications: As per medication reconciliation form Diet: Same as preadmission diet. This is Jamie Henry PA-C dictating discharge summary for Dr. Guido. Home Meds Reported Medications Atorvastatin Calcium (Atorvastatin Calcium) 10 Mg Tablet, 5 MG PO QHS, #30 TAB 06/06/17 Discontinued Reported Medications Metoprolol Tartrate* (Lopressor*) 25 Mg Tab 09/02/10 Propoxyphene-N/Acetaminophen (Darvocet N-100) 1 Tab Tab 12/22/09 Est Conj/Est Conj-Medroxypr Ac (Prempro (0.3/1.5)) 28 Tab Tab 12/22/09 Atorvastatin (Lipitor) 10 Mg Tablet 12/22/09 Follow-up Plan Follow-up at postoperative appointment provided to you at your preoperative visit. Primary Care Provider Tyree Ordonez Pending Labs Laboratory Tests Test 06/10/17 13:24 Lab Scanned Report REFERENCE [id number] JAMIE VANEGAS PA-C Jun 11, 2017 08:08
== END 2017-06-08 18:40 | disposition home health service (06) | DRG 470 ==
LOC: REC 06:36 → MS1 17:10
PROVIDERS: ADMIT Orthopaedic Surgery; ATTEND Orthopaedic Surgery
PROC: 0SRD0J9 Replacement of Left Knee Joint with Synthetic Substitute, Cemented, Open Approach (ICD-10-PCS; principal; 2017-06-06 10:30)
DX: M17.12 Unilateral primary osteoarthritis, left knee (principal); E78.5 Hyperlipidemia, unspecified
CPT/HCPCS: 73560; 80048; 85025; 86850; 86900; 86901; 88304; 88311; 97116; 97163; 97166; 97530; C1776; J0131; J0171; J0690; J0735; J1100; J1885; J2250; J2405; J2765; J2795; J3010; J7030; J7120

== ENCOUNTER → 2017-06-22 | Outpatient (CLI) | payer MEDICARE, BC ==
[~2017-06-22] MED LIST changes: -ACETAMINOPHEN 1000MG/100ML IV 100 ML IVPB ONE; -ATOR10TA23; +ATOR10TA65 PO; -CEFAZOLIN 2 GM/50 ML (PMX) 50 ML IVPB ONE; -CELECOXIB 200 MG CAP PO ONE; -DARVOCET; -DEXAMETHASONE 4 MG/ML 1 ML INJ IV ONE; -LACTATED RINGER'S 1,000 ML IV* SCH; -LANSOPRAZOLE 30 MG CAP PO ONE; -METO-448; -ONDANSETRON 4 MG INJ IV ONE; -[UNRECOGNIZED DRUG - CODE]
--- NOTE | 2017-06-22 16:24 | PN ---
Date/Time of Note Date/Time of Note DATE: 06/22/17 TIME: 16:20 Outpatient Progress Note Chief Complaint Two-week left total knee arthroplasty HPI 76-year-old female presents today for two-week postoperative visit status post left total knee arthroplasty. Patient denies any pain complaints. She continues to improve in regards to range of motion. Patient states that she is feeling "much better" than compared to prior to surgery. Denies any chest pain/ tightness, shortness of breath or calf pain. Denies any falls or acute injury status post surgery. Continues using front wheeled walker for assisted ambulation. Continues with physical therapy. Review of Systems Const: No Fever, no chills, no Fatigue, normal appetite, no diaphoresis. Resp: No SOB, no wheezing, no chest pain. CV: No chest pain, no palpitaions, no CARRERA. Physical Exam Blood pressure is 145/74, temperature is 97.9, pulse is 82, respiratory rate is 14, height is 5 foot 6 inches, weight is 160 pounds General Appearance: well-developed, well-nourished, in no acute distress. Left knee: Surgical wound is clean dry and intact and healing well. No signs of infection. Mild ecchymosis to the wound. Patient is able to flex up to 95 today. 5 lag from full extension. Normal sensory examination to light touch. Negative Homans sign. 2+ pedal pulses. 5/5 strength on resistance with flexion and extension. Gait is abnormal with assisted ambulation using front wheeled walker. Denies any antalgic gait. Imaging: X-ray of the Left knee performed on 06/22/2017 showing all components appearing well aligned, attached and integrated to the bone. No signs of any lucency between metal and bone. Allergies Coded Allergies: No Known Drug Allergy (Verified Allergy, Unknown, 06/06/17) Assessment/Plan Problems: (1) Status post total left knee replacement * Patient may discontinue aspirin at this time as she is up and moving. * May take showers without dressing. May apply non-scented lotion/moisturizer over the wound for dry skin. * Pain medication as needed. * Continue physical therapy with focus on range of motion, strengthening and gait training. * Follow-up at [address] Guido was present for examination today. Medications Home Meds Reported Medications Atorvastatin Calcium (Atorvastatin Calcium) 10 Mg Tablet, 5 MG PO QHS, #30 TAB 06/06/17 JAMIE VANEGAS PA-C Jun 22, 2017 16:24
--- NOTE | 2017-06-22 17:58 | RADRPT ---
PROCEDURE: XR Knee. CLINICAL INDICATION: Pain TECHNIQUE: AP and lateral views of the left knee were obtained. The images reviewed on a PACS wor kstation. COMPARISON: 02/15/2017 FINDINGS: Two views of the left knee demonstrate interval total knee replacement. Femoral tibial components an atomically seated. No acute fractures identified. Is no evidence of hardware loosening. Moderate siz ed knee joint effusion is seen. Bones are mildly osteopenic. Soft tissues are unremarkable. IMPRESSION: 1. Left total knee replacement. 2. No acute fracture or evidence of hardware loosening. 3. Knee joint effusion RPTAT: HH .Maxime West MD, MD Date Time Electronically viewed and signed by .Maxime West MD, on 06/22/2017 17:57 .W/
--- NOTE | 2017-06-23 06:36 | HKNOTE ---
DATE OF SERVICE: 06/22/2017 CHIEF COMPLAINT: Left knee replacement. HISTORY OF PRESENT ILLNESS: The patient is here for a 2-week followup on her left total knee replac ement. The patient is progressing well. She does complain of pain. There is no history of fever o r chills. She is continuing her physical therapy and is pleased with her progress. PHYSICAL EXAMINATION: GENERAL: Shows a pleasant female, awake, alert and oriented. MUSCULOSKELETAL: Left knee incision is healing well. There is mild swelling. Range of motion is 5 to 90 degrees. There is no neurovascular deficit. IMAGING: X-rays of the left knee show total knee replacement in good position with no evidence of l oosening. ASSESSMENT AND PLAN: The patient is doing well after left knee replacement. She is advised to cont inue physical therapy and follow up in 4 to 6 weeks. Dictated By: FOZIA CAMERON MD UB/ALDO Conf#: [id number] DID#: [id number]
== END | disposition home or self-care (01) ==
LOC: HKI 16:04
PROVIDERS: ATTEND Orthopaedic Surgery
DX: Z09 Encounter for follow-up examination after completed treatment for conditions other than malignant neoplasm (principal); Z96.652 Presence of left artificial knee joint

== ENCOUNTER → 2017-08-03 | Outpatient (CLI) | END | disposition home or self-care (01) ==

== ENCOUNTER → 2017-11-05 | Outpatient (CLI) | END | disposition home or self-care (01) ==

== ENCOUNTER 2017-11-29 06:58 | Observation (INO) | END 2017-11-30 14:50 | disposition home health service (06) ==

== ENCOUNTER → 2018-01-04 | Outpatient (CLI) | END | disposition home or self-care (01) ==

== ENCOUNTER → 2018-05-27 | Outpatient (CLI) | END | disposition home or self-care (01) ==